=== PATIENT | female | born 2000 | race Hispanic/Latino ===

== ENCOUNTER 2023-07-11 17:17 | Emergency (ER) | payer BC, OTHER ==
[~2023-07-11 17:17] MED LIST: Iopamidol 300 61% 100 ML VIAL FS ONE
[2023-07-11] MEDS ORDERED: fentaNYL 50 mcg/mL 1 mL Vial ONE (17:41)
[2023-07-11 17:57] LABS: #Eosinphils 0.2 10x3/uL (0.0-0.5); #Monocytes 0.6 10x3/uL (0.0-1.1); #Neutrophils 8.6 10x3/uL (1.5-8.4); %Basophils 0.3 % (0.0-2.0); %Eosinophils 1.4 % (0.0-6.0); %Lymphocytes 17.7 % (18.0-47.0); %Monocytes 5.4 % (0.0-10.0); %Neutrophils 74.9 % (40.0-75.0); Hematocrit 41.5 % (34.9-44.5); Hemoglobin 13.9 g/dL (12.0-15.5); Mean Corpuscular HGB CONC 33.5 g/dL (32.0-36.0); Mean Corpuscular Hemoglobin 27.6 pg (27.0-33.0); Mean Corpuscular Volume 82.3 fl (81.6-98.3); Mean Platelet Volume 10.5 fl (7.4-10.4); Platelet Count 284 10x3/uL (150-450); RBC Distribution Width 13.2 % (11.5-14.5); Red Blood Cell (RBC) Count 5.04 10x6/uL (3.90-5.03); White Blood Cell (WBC) Count 11.5 10x3/uL (3.5-10.5)
[2023-07-11 18:05] LABS: BHCG - Serum Negative (NEGATIVE); Pregs Control Background? CLEAR/WHITE (CLR/WHITE); Pregs Control Bar Appear? YES (CONTROL BAR)
[2023-07-11 18:06] LABS: ALT (SGPT) 23 U/L (8-55); AST (SGOT) 20 U/L (5-34); Albumin 4.2 g/dL (3.5-5.0); Alkaline Phosphatase 109 U/L (40-110); Anion Gap 15 mmol/L (10-20); BUN (Urea Nitrogen) 13 mg/dL (7.0-18.7); Bilirubin, Total 0.2 mg/dL (0.2-1.2); Calc. Creatinine Clearance 0 mL/min (70-130); Calcium 9.1 mg/dL (7.8-10.44); Carbon Dioxide 21 mmol/L (22-29); Chloride 106 mmol/L (98-107); Estimated GFR 78; Globulin 4.3 g/dL (2.4-3.5); Glucose 101 mg/dL (70-105); Potassium 3.7 mmol/L (3.5-5.1); Protein, Total 8.5 g/dL (6.0-8.3); Sodium 138 mmol/L (136-145)
[2023-07-11] MEDS ORDERED: Orphenadrine Citrate 60 MG/2 ML VIAL ONE (18:58)
[2023-07-11] MEDS ORDERED: Ketorolac Tromethamine 30 MG (1 mL) VIAL ONE (18:59)
== END 2023-07-11 19:20 | disposition home or self-care (01) ==
LOC: CSHERS 17:17
DX: S13.4XXA Sprain of ligaments of cervical spine, initial encounter (principal); F17.290 Nicotine dependence, other tobacco product, uncomplicated; V89.2XXA Person injured in unspecified motor-vehicle accident, traffic, initial encounter
CPT/HCPCS: 36415; 70450; 71260; 72125; 74177; 80053; 84703; 85025; 94760; 96374; 96375; G0390; J1885; J2360; J3010; Q9967